=== PATIENT | female | born 1975 | race Caucasian/White ===

== ENCOUNTER → 2018-04-01 | Outpatient (CLI) | payer BC | LOC: MC.RAD 08:00 | DX: Z12.31 Encounter for screening mammogram for malignant neoplasm of breast (principal) ==

== ENCOUNTER → 2019-08-29 | Outpatient (CLI) | payer BC | LOC: MC.RAD 09:13 | DX: Z12.31 Encounter for screening mammogram for malignant neoplasm of breast (principal) ==

== ENCOUNTER → 2020-09-02 | Outpatient (CLI) | payer BC | LOC: MC.RAD 11:28 | DX: Z12.31 Encounter for screening mammogram for malignant neoplasm of breast (principal) ==

== ENCOUNTER → 2022-02-02 | Outpatient (CLI) | payer BC | LOC: MC.RAD 13:00 | DX: Z12.31 Encounter for screening mammogram for malignant neoplasm of breast (principal) ==

== ENCOUNTER 2023-11-04 00:12 | Observation (INO) | payer BC ==
[~2023-11-04] VITALS: Ht 167.6 cm; Wt 135.0 kg
[2023-11-04 00:25] VITALS: BP 118/88; PULSE 98; TEMP 98.9
--- NOTE | 2023-11-04 00:25 | NUR ---
PT AMBULATED TO ROOM 323. ARRIVED VIA PRIVATE CAR FROM [facility]. A&O X4. VSS ON ROOM AIR. INT TO LEFT WRIST PATENT. PT STATES SHE HAS MILD NAUSEA BUT DENIES NEED FOR MEDS AT THIS TIME. DENIES PAIN BUT STATES EPIGASTRIC & RUQ FEEL "FULL OF GAS". PT ORIENTED TO ROOM. EDUCATED ON NPO STATUS. DENIES FURTHER NEEDS. CALL LIGHT IN REACH
[2023-11-04] MEDS ORDERED: NS 1,000 ML IV SCH (00:30)
[2023-11-04] MEDS ORDERED: Ondansetron 4 MG/2 ML VIAL IV PRN (00:30)
[2023-11-04] MEDS ORDERED: TOPROL XL 25MG25 MG PO (00:36)
[2023-11-04] MEDS ORDERED: HCTZ 25MG TAB25 MG PO (00:37)
[2023-11-04] MEDS ORDERED: COZAAR 25MG25 MG/TAB PO (00:37)
[2023-11-04] MEDS ORDERED: NORVASC 10MG10 MG PO (00:38)
[2023-11-04] MEDS ORDERED: HYDROmorphone 0.5 MG/0.5 ML SYRINGE IV PRN (00:45)
[2023-11-04 03:28] VITALS: BP 111/68; PULSE 82; TEMP 98.2
--- NOTE | 2023-11-04 05:51 | NUR ---
PT RESTING IN BED WITH UNLABORED RESP. NO FURTHER C/O PAIN OR N/V. CALL LIGHT IN REACH
--- NOTE | 2023-11-04 07:00 | NUR ---
Patient laying in bed, A&Ox4. VSS. IV CDI, fluids infusing. Denies pain and discomfort. NPO. Call light within reach
[2023-11-04 07:42] VITALS: BP 126/77; PULSE 72; TEMP 98.4
[2023-11-04 11:18] LABS: BASO % 0.3 % (0.0-2.0); EOS % 0.3 % (0.0-4.0); GRAN # 3.4 K/mm3 (1.4-6.5); GRAN % 59.6 % (42.2-75.2); HEMATOCRIT 41.6 % (37.0-47.0); HEMOGLOBIN 13.3 g/dl (12.5-16.0); LYMPH # 1.8 K/mm3 (1.2-3.4); LYMPH % 31.6 % (20.0-51.0); MEAN CELL VOLUME 87 fl (80.0-100.0); MEAN CORPUSCULAR HEMOGLOBIN 28 pg (27-31); MEAN CORPUSCULAR HGB CONC 32 g/dl (33.0-37.0); MEAN PLATELET VOLUME 10.3 fl (7.4-10.4); MONO # 0.5 K/mm3 (0.1-0.6); PLATELET COUNT 271 K/mm3 (130-400); REDCELL DISTRIBUTION WIDTH-CV 13.2 % (11.5-14.5)
--- NOTE | 2023-11-04 11:19 | NUR ---
SW met with patient to complete intake. Patient provides she lives in [facility] [place] alone. Next of kin is father Leroy Williamson [phone]. Patient provides she does not utilize DME nor home health services, and is currently independent with ADLs. PCP is Dr. Samayoa and pharmacy is [facility]. Patient states she plans to return to her home upon discharge. SW will continue to follow. Discharge plan: home
[2023-11-04 11:45] VITALS: BP 148/78; PULSE 63; TEMP 98.4
[2023-11-04 11:45] LABS: BILIRUBIN,TOTAL 0.8 mg/dL (0.2-1.2); CALCIUM 8.8 mg/dL (8.4-10.2); CREATININE, serum 0.66 mg/dL (0.57-1.11); POTASSIUM 3.4 mmol/L (3.5-4.5); TOTAL PROTEIN 5.9 gm/dL (6.2-8.1)
[2023-11-04] MEDS ORDERED: NORCO 325 MG-51 TAB PO (12:44)
[2023-11-04] MEDS ORDERED: Acetaminophen 325 MG TAB PO PRN (13:30)
--- NOTE | 2023-11-04 15:14 | NUR ---
Discharge paperwork reviewed with the patient. PAtient verbalized an understanding to follow doctors orders. IV removed, tip intact. Gauze and coban applied. No further needs expressed. Waiting on ride. Call light within reach
== END 2023-11-04 15:50 | disposition home or self-care (01) ==
LOC: SURG 00:12
PROVIDERS: ADMIT Surgery
DX: R10.13 Epigastric pain (principal)
CPT/HCPCS: G0378; J2543; J7030